=== PATIENT | female | born 1985 | race Caucasian/White ===

== ENCOUNTER 2023-08-26 13:56 | Inpatient (IN) | payer MEDICARE, SELFPAY ==
[2023-08-26] VITALS (7 sets, daily range): BP systolic 147–192; BP diastolic 79–109; PULSE 69–92; RESP 17–20; TEMP 36.6–37.3; O2SAT 94–100; BMI 30.7
--- NOTE | ~2023-08-26 | CT_ITS ---
EXAMINATION: CT ABDOMEN WITH CONTRAST CLINICAL INFORMATION: Liver mass. COMPARISON: CT abdomen and pelvis without IV contrast. TECHNIQUE: Contiguous axial thin section helical images of the abdomen were performed following the administration of oral contrast and 85 mL of Omnipaque 350 intravenous contrast. No delayed images were obtained. The data set was reformatted in the coronal and sagittal planes and reviewed on an independent workstation. This CT examination was performed using dose optimization techniques as appropriate, variously including the following: *Automated exposure control *Adjustment of mA and/or kV according to patient size (this includes techniques or standardized protocols for targeted exams where dose is matched to indication/reason for exam; i.e. extremities or head) *Use of iterative reconstruction technique DLP: 230 mGy-cm FINDINGS: LUNG BASES: There is plate-like atelectasis in both lung bases. Heart size is normal. LIVER, GALLBLADDER, AND BILIARY TREE: Again visualized are multiple nonenhancing liver masses, the largest in the left hepatic lobe measuring 6.2 x 4.3 x 5.5 cm. The largest lesion in the left hepatic lobe has some peripheral enhancement along its superior and posterior borders and may represent a hemangioma. No delayed images were obtained. A second smaller lesion in the right hepatic lobe measures 2.2 x 1.4 cm axial image 19/3. A smaller left hepatic lobe lesion measures 2.21 cm on axial image 14/3. There is a caudate lobe lesion with some peripheral enhancement measuring 3.3 x 4.1 cm on axial image 26/3. No intrahepatic ductal dilatation. The gallbladder is unremarkable. PANCREAS: The pancreas is homogeneous in density without focal lesion. Peripancreatic fat borders are maintained normal. SPLEEN: Unremarkable. ADRENAL GLANDS AND KIDNEYS: Adrenal glands are unremarkable. Both kidney nephrograms are symmetrical in size, shape and position. There is no hydronephrosis. There is a right internal ureteral stent with its proximal end in the kidney pelvis and the distal end likely in the bladder not in the [id number]. There are multiple radiopaque bilateral small renal calculi. UPPER GI TRACT: The stomach is distended with recently ingested food. The small bowel loops and the colon appear unremarkable. There are scattered diverticula in the colon. Appendix is normal caliber. Small shotty lymph nodes are seen in the ileocecal mesentery. LYMPH NODES: Normal. VASCULAR: Unremarkable. BONES: No aggressive lytic or sclerotic process seen. CT/CT abdomen w IV con IMPRESSION: 1. Multiple nonenhancing liver lesions. The largest lesion in the left hepatic lobe has some peripheral enhancement and may represent hemangioma. No delayed images were obtained. Recommend repeat CT or MRI abdomen with contrast and delayed imaging. 2. There is a right internal ureteral stent with its proximal end in the kidney pelvis and the distal end likely in the bladder not in the [id number]. 3. Bilateral nephrolithiasis without hydronephrosis. Fleischner guidelines were followed.
--- NOTE | ~2023-08-26 | CT_ITS ---
EXAMINATION: CT ABDOMEN AND PELVIS WITHOUT CONTRAST CLINICAL INFORMATION: Right flank pain COMPARISON: None available. TECHNIQUE: Multidetector volumetric imaging was performed from the superior aspect of the liver through the pubic symphysis. Sagittal and coronal reformatted images were obtained on the technologist's workstation. This CT examination was performed using dose optimization techniques as appropriate, variously including the following: *Automated exposure control *Adjustment of mA and/or kV according to patient size (this includes techniques or standardized protocols for targeted exams where dose is matched to indication/reason for exam; i.e. extremities or head) *Use of iterative reconstruction technique DLP: 586 mGy-cm FINDINGS: LUNG BASES: The visualized lung bases are unremarkable. LIVER, GALLBLADDER, AND BILIARY TREE: There are multiple masses in the liver with an exophytic, irregular mass in the left lobe of the liver, measured 5.9 x 4.7 x 6.7 cm. Smaller sized masses seen through the entire liver. The gallbladder is unremarkable with no evidence of radiopaque gallstones, gallbladder wall thickening, or obvious pericholecystic inflammatory changes. PANCREAS: Unremarkable. SPLEEN: Unremarkable. ADRENAL GLANDS: Unremarkable. KIDNEYS AND URETERS: There is bilateral nephrolithiasis with multiple small calculi seen in the collecting system of both kidneys. There is a partially obstructing 0.4 cm stone in proximal right ureter. BLADDER: Unremarkable. GASTROINTESTINAL TRACT: There are changes of colonic diverticulosis without diverticulitis The small unremarkable. The appendix is unremarkable. ABDOMINAL WALL: No significant hernia is appreciated. LYMPH NODES: Normal. VASCULAR: Unremarkable. PELVIC VISCERA: There is IUD in the lower uterine segment and is not protective of incidental fertility. IUD is in provided in the lower uterus. OSSEOUS STRUCTURES: Unremarkable. CT/CT abdomen pelvis wo IV con IMPRESSION: 1. Bilateral nephrolithiasis with a partially obstructing stone in proximal right ureter in the right hydroureteronephrosis. 2. Multiple masses in the liver. Correlate with IV enhanced CT scan or MRI 3. IUD in the lower uterine segment, not protective. 4. Diverticulosis without diverticulitis. Fleischner guidelines were followed.
--- NOTE | 2023-08-26 14:18 | ED.ABDPAIN ---
HPI - Abdominal Pain General Chief Complaint: Abdominal Pain Stated Complaint: ABD PAIN/N/V Time Seen by Provider: 08/26/23 16:08 Source: patient and EMS Mode of arrival: EMS Limitations: no limitations History of Present Illness HPI narrative: This is a 38-year-old female who denies past medical history presenting to the emergency department for complaints of sudden onset right-sided flank pain, abdominal pain, nausea, vomiting all of which started this morning she also reports subjective fevers and chills. She reports her pain is 10/10 she is extremely uncomfortable. She reports this has never happened to her before. No chances of . Denies drugs, alcohol tobacco. Patient reports she still has her appendix. Has never had a kidney stone. Denies chest pain, shortness of breath, headache, vision changes, dizziness, urinary sx and weakness. Related Data Home Medications Medication Instructions Recorded Confirmed No Known Home Meds 08/26/23 08/26/23 Allergies Allergy/AdvReac Type Severity Reaction Status Date / Time No Known Allergies Allergy Verified 08/26/23 14:20 Review of Systems Review of Systems Constitutional : No Weight loss, + Fever, + Chills, + Fatigue, + Malaise ENT/Mouth : No sore throat, No Rhinorrhea Eyes: No Eye Pain, No Swelling, No Redness Cardiovascular : No Chest Pain, No SOB, No Dyspnea on Exertion, No Orthopnea, No Edema, No Palpitations Respiratory : No Cough, No Sputum, No Wheezing Gastrointestinal : No Nausea, No Vomiting, No Diarrhea, No Constipation, + abdominal Pain, No Hematochezia, No Melena Genitourinary : No Dysuria, No Urinary Frequency, No Hematuria, Musculoskeletal : No joint pain, No Myalgias, No Joint Swelling, + flank pain Skin : No Skin Lesions, No rash Neuro : No Weakness, No Numbness, No Dizziness, No Headache Psych : No Anxiety/Panic, No Depression All other systems reviewed and are negative Yes all other systems are reviewed and are negative [facility] Past Medical History Attestation statement: The following information was validated with the patient. Source: old records reviewed and nursing notes reviewed Social History Patient Tobacco Use Status: Never used Tobacco Smoked in Last 30 Days: No Use of substances other than those prescribed or required for medical reasons: No Advance Directives: No Advance Directives Information Provided: Yes Nutrition Risks: No Nutritional Risk Patient : No Physical Exam ED Vital Signs: Vital Signs - 24 hr 08/26/23 14:21 08/26/23 15:07 Temperature 98 F 98.0 F Pulse Rate 82 80 Respiratory Rate 19 20 Blood Pressure 167/109 H 172/92 H Pulse Oximetry 98 94 Oxygen Delivery Method Room Air Room Air BMI result Body Mass Index 30.0 vss Appearance: Alert.? Oriented X3.? + acute distress, appears uncomfortable ? Head: Normocephalic, atraumatic, no step-offs or deformities Eyes: Pupils equal, round and reactive to light.? Neck: Normal inspection.? Neck supple.? CVS: Normal heart rate and rhythm.? Pulses normal.? Respiratory: No respiratory distress.? Breath sounds normal.? Abdomen: Soft and + right sided tenderness .? Skin: Skin warm and dry.? Normal skin color.? Normal skin turgor.? Extremities: No lower extremity edema.? No calf ttp. 5/5 strength to bilateral upper and lower extremities Back: + right sided cva tenderness Neuro: Oriented X 3.? No motor deficit.? No sensory deficit. CN 2-12 intact Course Course Course Narrative: This is an RME: Additional HPI, ROS, PE not included below will be deferred to primary provider. This is a [id number]-female presenting to the emergency department with complaints of right sided abdominal pain x 5 hours. patient endorsing right flank pain with nausea. Actively vomiting in triage. Plan: Labs, UA, upreg Reevaluation(s) Reevaluation #1: CBC with leukocytosis and left shift. Chemistry with an elevated BUN likely secondary to poor p.o. intake dehydration. Initial labs did not include a lipase will add a lipase, blood cultures, lactic acid. Urine pending. CT abdomen pelvis pending. Time: 16:45 Reevaluation #2: Lipase unremarkable. Normal lactic acid. UA with UTI therefore ceftriaxone was given. CT abdomen and pelvis with bilateral nephrolithiasis with partially obstructing stone in the proximal right ureter in the right hydroureter nephrosis, multiple masses in the liver, IUD in the lower uterine segment not protective. Diverticulosis. This case was thoroughly discussed with Urology who will admit patient, Dr. Renteria. At this time plan is for hospital admission. Time: 19:37 Medical Decision Making Medical Decision Making [facility] Narrative: [age]-year-old female presents with sudden onset right-sided flank pain since this morning with associated nausea, vomiting, subjective fevers, chills. Physical examination patient appears uncomfortable, right-sided CVA tenderness, right-sided abdominal pain. Concerns for urinary tract infection versus pyelonephritis versus obstructing uropathy. Will rule out appendicitis, unlikely cholecystitis, acute abdomen, obstruction, pancreatitis, diverticulitis. Plan at this time labs, imaging, urine, pain control. Differential Diagnosis Differential Diagnoses: The differential diagnosis associated with the presentation includes Concerns for urinary tract infection versus pyelonephritis versus obstructing uropathy. Will rule out appendicitis, unlikely cholecystitis, acute abdomen, obstruction, pancreatitis, diverticulitis. Admission/Observation Consideration of admission/observation: Escalation of care including admission/observation considered Likely Consult Healthcare Provider Management of the patient was discussed with: Hospitalist and Patient Scheduling Manager ( ) Lab Data [facility] Lab Attestation statement: I reviewed the patient's lab results. 08/26/23 15:31 08/26/23 15:31 Labs: Lab Results 08/26/23 08/26/23 Range/Units 15:31 17:10 WBC 15.9 H (4.8-10.8) X10*3/uL RBC 4.79 (4.20-5.50) X10*6/uL Hgb 12.8 (12.0-16.0) g/dl Hct 41.0 (37.0-47.0) % MCV 85.6 (80.0-98.0) fL MCH 26.7 L (27.0-33.0) pg MCHC 31.2 (31.0-35.0) g/dl RDW 15.8 (11.0-16.0) % Plt Count 352 (160-400) X10*3/uL MPV 11.5 (9.4-12.3) fL Immature Gran % (Auto) 0.6 H (0.0-0.4) % Neut % (Auto) 87.6 H (45-73) % Lymph % (Auto) 8.2 L (20-40) % Barren % (Auto) 2.7 (2-11) % Eos % (Auto) 0.4 (0-4) % Baso % (Auto) 0.5 (0-2) % Lymph # (Auto) 1.3 (1.2-4.9) X10*3/uL Barren # (Auto) 0.4 (0.1-1.2) X10*3/uL Eos # (Auto) 0.1 (0.0-0.4) X10*3/uL Baso # (Auto) 0.1 (0.0-0.2) X10*3/uL Abs Immat Gran (auto) 0.09 H (0.00-0.03) X10*3/uL Absolute Neuts (auto) 14.0 H (2.0-8.3) x10*3/uL Absolute Nucleated RBC 0.000 (0.0-0.012) X10*3/uL Nucleated RBC % (auto) 0.0 (0.0-0.2) /100WBC Sodium 141 (135-145) mmol/L Potassium 4.3 (3.3-5.1) mmol/L Chloride 107 (96-108) mmol/L Carbon Dioxide 28 (22-29) mmol/L Anion Gap 10 L (12-20) BUN 17 H (9-16) mg/dL Creatinine 0.87 (0.5-1.4) mg/dL Estim Creat Clear Calc 92.5 Estimated GFR > 60 Random Glucose 135 H (60-115) mg/dL Lactic Acid 1.6 (0.5-2.0) mmol/L Calcium 9.6 (8.4-10.2) mg/dL Total Bilirubin 0.2 (0.0-1.0) mg/dL Direct Bilirubin < 0.2 (0.0-0.5) mg/dL AST 21 (5-31) U/L ALT 17 (0-31) U/L Alkaline Phosphatase 70 (39-117) U/L Total Protein 7.6 (6.5-8.0) g/dL Albumin 4.3 (3.5-5.0) g/dL Lipase 37 (8-78) U/L Urine Color Yellow Urine Appearance Cloudy Urine pH 7.0 (5.0-9.0) Ur Specific [place] 1.015 (1.005-1.025) Urine Protein 30 (1+) H (Neg-Trace) mg/dL Urine Glucose (UA) Negative (Negative) mg/dL Urine Ketones Negative (Negative) mg/dL Urine Blood Large (3+) H (Negative) Urine Nitrite Negative (Negative) Ur Leukocyte Esterase Moderate (2+) H (Negative) Urine RBC >20 H (0-2) /HPF Urine WBC >50 H (0-5) /HPF Ur Squamous Epith Cells 3-5 (0-2) /HPF Urine Bacteria 4+ (None Seen) Hyaline Casts 0-2 (0-2) /LPF Urine Test NEGATIVE (NEGATIVE) Independent Interpretation I performed an independent interpretation of an: CT Scan (CT/CT abdomen pelvis wo IV con IMPRESSION: 1. Bilateral nephrolithiasis with a partially obstructing stone in proximal right ureter in the right hydroureteronephrosis. 2. Multiple masses in the liver. Correlate with IV enhanced CT scan or MRI 3. IUD in the lower uterine segment, not protective. 4) Radiology Impression Discussion of test interpretation with radiology: I have reviewed the radiologist's reading. Prescription Management I considered prescription management with: Pain Medication Medications Administered Generic Name Dose Route Start Last Admin Trade Name Freq PRN Reason Stop Dose Admin Sodium Chloride 1,000 mls @ 100 mls/hr 08/26/23 18:00 08/26/23 18:27 Ns IVCONT 100 mls/hr .Q10H KAMALJIT Administration Discontinued Medications Generic Name Dose Route Start Last Admin Trade Name Freq PRN Reason Stop Dose Admin Diphenhydramine HCl 25 mg 08/26/23 16:14 08/26/23 16:36 Diphenhydramine Hcl 50 Mg/Ml Vial IVPUSH 08/26/23 16:15 25 mg ONCE ONE Administration Sodium Chloride 1,000 mls @ 999 mls/hr 08/26/23 15:45 08/26/23 16:47 Ns IV 08/26/23 16:45 Infused .Q1H1M KAMALJIT Infusion Sodium Chloride 2,449.41 mls @ 2,449.41 mls/hr 08/26/23 16:14 08/26/23 17:36 Ns 30 ml/kg infuse over 1 hr (2449.41 ml) 08/26/23 17:13 Infused IV Infusion .Q1H STA Ceftriaxone Sodium 1 gm/ 50 mls @ 100 mls/hr 08/26/23 17:46 08/26/23 18:27 Sodium Chloride IV 08/26/23 18:15 100 mls/hr ONCE ONE Administration Ketorolac Tromethamine 30 mg 08/26/23 16:14 08/26/23 16:35 Ketorolac Tromethamine 15 Mg/Ml Vial IVPUSH 08/26/23 16:15 30 mg ONCE ONE Administration Metoclopramide HCl 10 mg 08/26/23 16:14 08/26/23 16:38 Metoclopramide Hcl 10 Mg/2 Ml Vial IVPUSH 08/26/23 16:15 10 mg ONCE ONE Administration Morphine Sulfate 4 mg 08/26/23 16:46 08/26/23 17:06 Morphine Sulfate 4 Mg/Ml Cartridge IVPUSH 08/26/23 16:47 4 mg ONCE ONE Administration Protocol Ondansetron HCl 4 mg 08/26/23 14:23 08/26/23 14:27 Ondansetron Odt 4 Mg Tab.Rapdis TRANSLINGU 08/26/23 14:24 4 mg ONCE ONE Administration Ondansetron HCl 4 mg 08/26/23 15:42 08/26/23 15:46 Ondansetron Hcl 4 Mg/2 Ml Vial IVPUSH 08/26/23 15:43 4 mg ONCE ONE Administration Critical Care Time Critical Care Time Critical Care Time: Yes Total Critical Care Time: 60 Attestation: I attest to this time spent taking care of the patient, obtaining history, physical, reviewing labs, imaging, speaking to my attending, speaking to specialist. Discharge Plan Discharge Clinical Impression: Obstructive uropathy, Malpositioned IUD, Liver mass Patient Disposition: Admitted As Inpatient
[2023-08-26] MEDS: Ondansetron ODT 4 MG TAB.RAPDIS TRANSLINGU (14:27)
--- NOTE | 2023-08-26 15:03 | PC.NURSE ---
tech bedside obtaining labs at this time.
[2023-08-26 15:36] LABS: MANUAL DIFF FLAG NO
[2023-08-26 15:41] LABS: Basophils Absolute Auto 0.1 X10*3/uL (0.0-0.2); Basophils Percent Auto 0.5 % (0-2); Eosinophils Absolute Auto 0.1 X10*3/uL (0.0-0.4); Eosinophils Percent Auto 0.4 % (0-4); Hemoglobin 12.8 g/dl (12.0-16.0); Imm Gran Abs Auto 0.09 X10*3/uL (0.00-0.03); Imm Gran Pct Auto 0.6 % (0.0-0.4); Lymphocytes Absolute Auto 1.3 X10*3/uL (1.2-4.9); Lymphocytes Percent Auto 8.2 % (20-40); Mean Corpuscular HGB Conc 31.2 g/dl (31.0-35.0); Mean Corpuscular Hemoglobin 26.7 pg (27.0-33.0); Mean Corpuscular Volume 85.6 fL (80.0-98.0); Mean Platelet Volume 11.5 fL (9.4-12.3); Monocytes Absolute Auto 0.4 X10*3/uL (0.1-1.2); Monocytes Percent Auto 2.7 % (2-11); Neutrophils Percent Auto 87.6 % (45-73); Platelet Count 352 X10*3/uL (160-400); Red Blood Count 4.79 X10*6/uL (4.20-5.50); Red Cell Distribution Width 15.8 % (11.0-16.0); White Blood Count 15.9 X10*3/uL (4.8-10.8)
[2023-08-26] MEDS: ondansetron HCL 4 MG/2 ML VIAL IVPUSH (15:46)
[2023-08-26] MEDS: 0.9 % Sodium Chloride 1,000 ML 999 ML IV (15:46)
--- NOTE | 2023-08-26 15:49 | PC.NURSE ---
a&ox3, vss and up to date at this time. pt c/o right sided flank pain. denies radiation. pt verbalizes pain started this am. pt currently tearful/agitated d/t pain. states that it is excruciating. pt nauseous/dry heaving. 20gIV placed in left AC w/o difficulty - labs drawn and sent to lab. zofran and NS administered. call smith placed within reach.
[2023-08-26 15:57] LABS: Alanine Aminotransferase 17 U/L (0-31); Albumin Level 4.3 g/dL (3.5-5.0); Alkaline Phosphatase 70 U/L (39-117); Anion Gap 10 (12-20); Aspartate Amino Transferase 21 U/L (5-31); Bilirubin Direct < 0.2 mg/dL (0.0-0.5); Bilirubin Total 0.2 mg/dL (0.0-1.0); Blood Urea Nitrogen 17 mg/dL (9-16); Calcium 9.6 mg/dL (8.4-10.2); Carbon Dioxide 28 mmol/L (22-29); Chloride 107 mmol/L (96-108); Creatinine Clr Calc Pharmacy 92.5; Estimated Glomerular Filt Rate > 60; Glucose Random 135 mg/dL (60-115); Potassium 4.3 mmol/L (3.3-5.1); Sodium 141 mmol/L (135-145); Total Protein 7.6 g/dL (6.5-8.0)
[2023-08-26] MEDS: Ketorolac Tromethamine 15 MG/ML VIAL 30 MG IVPUSH (16:35)
[2023-08-26] MEDS: diphenhydrAMINE HCL 50 MG/ML VIAL 25 MG IVPUSH (16:36)
[2023-08-26] MEDS: 0.9 % Sodium Chloride 2,449.41 ML 2449.41 ML IV (16:36)
[2023-08-26] MEDS: Metoclopramide HCl 10 MG/2 ML VIAL IVPUSH (16:38)
[2023-08-26] MEDS: Morphine Sulfate 4 MG/ML CARTRIDGE IVPUSH (17:06)
--- NOTE | 2023-08-26 17:08 | PC.NURSE ---
medication administered per provider order. tech obtaining labs at this time. pt verbalizing pain level did not decrease despite medication administration. pt still teary/agitated at this time. pt still displays w/ no sob/wob at this time. respirations remain even and unlabored. call smith placed within reach.
[2023-08-26 17:09] LABS: Lipase 37 U/L (8-78)
[2023-08-26 17:21] LABS: Appearance Urine Cloudy; Color Urine Yellow; Glucose Urine UA Negative (Negative); Leukocyte Esterase Urine Moderate (2+) (Negative); Nitrite Urine Negative (Negative); Specific Gravity - Urine 1.015 (1.005-1.025); UMIC TRIGGER UACC YES; Urine Blood Large (3+) (Negative); Urine Ketones Negative (Negative); Urine Protein 30 (1+) mg/dL (Neg-Trace)
[2023-08-26 17:23] LABS: UPreg QC Valid YES; Urine Pregnancy NEGATIVE (NEGATIVE)
[2023-08-26 17:28] LABS: Lactic Acid 1.6 mmol/L (0.5-2.0)
[2023-08-26 17:34] LABS: Bacteria Urine 4+ (None Seen); Hyaline Casts Urine 0-2 /LPF (0-2); RBC Urine >20 /HPF (0-2); UACC Culture Trigger YES; WBC Urine >50 /HPF (0-5)
--- NOTE | 2023-08-26 17:50 | P.HPGS_ITS ---
History of Present Illness History of Present Illness Date of Service: 08/26/23 Chief complaint: ABD PAIN/N/V Narrative: Brisa Cooley is a 38 year old female Sudden onset right flank pain 07/15 associated nausea, vomiting Denies urge, frequency, gross hematuria Subjective chills No prior stone history Imaging - CT 5mm UPJ right with mild hydronephrosis Plan - admit for pain and fluid managment Plan intervention tomorrow Review of Systems Constitutional: Constitutional: Reports as per HPI and Reports no additional constitutional complaints Cardiovascular: Cardiovascular: Reports as per HPI and Reports no additional cardiovascular complaints Respiratory: Respiratory: Reports as per HPI and Reports no additional respiratory complaints Gastrointestinal: Gastrointestinal: Reports as per HPI and Reports no josh tional gastrointestinal complaints Genitourinary: Genitourinary: Reports as per HPI Musculoskeletal: Musculoskeletal: Reports no additional musculoskeletal complaints and Reports as per HPI Neurologic: Reports system reviewed and no additional complaints, except as documented and Reports as per HPI [facility] Social History Smoked in Last 30 Days: No Use of substances other than those prescribed or required for medical reasons: No Advance Directives: No Advance Directives Information Provided: Yes Patient : No Meds Allergies Allergy/AdvReac Type Severity Reaction Status Date / Time No Known Allergies Allergy Verified 08/26/23 14:20 Active Medications: Current Medications Ceftriaxone Sodium 1 gm/ (Sodium Chloride) 50 mls @ 100 mls/hr IV ONCE ONE Stop: 08/26/23 18:15 Physical Exam Vital Signs: Vital Signs: Last Vital Signs Temp 98.0 F 08/26/23 15:07 Pulse 80 08/26/23 15:07 Resp 20 08/26/23 15:07 BP 172/92 H 08/26/23 15:07 Pulse Ox 94 08/26/23 15:07 O2 Del Method Room Air 08/26/23 15:07 BMI result Body Mass Index 30.0 Const: General: cooperative, healthy appearing, comfortable and no acute distress Orientation/consciousness: patient oriented x3 HEENT: Face and sinus: Yes normal facial exam Mouth: moist mucous membranes Neck: Neck: Yes normal visual inspection, Yes full ROM and Yes trachea midline Chest: Chest palpation & inspection: normal inspection of the chest Resp: Effort & Inspection: normal respiratory effort, able to speak in complete sentences and no respiratory distress GI: Inspection: Yes normal to inspection Back/Spine/Pelvis: Cervical Spine: normal cervical lordosis Thoracic/Lumbar Spine: thoracic and lumbar spine normal to inspection Skin: General skin exam: no rashes or lesions noted Neuro: General: patient oriented x3, tone normal and moves all extremities Extrem: General: Yes normal to inspection and Yes capillary refill normal Results Results Labs: Short CBC 08/26/23 Range/Units 15:31 WBC 15.9 H (4.8-10.8) X10*3/uL Hgb 12.8 (12.0-16.0) g/dl Hct 41.0 (37.0-47.0) % Plt Count 352 (160-400) X10*3/uL BMP 08/26/23 15:31 Sodium 141 Potassium 4.3 Chloride 107 Carbon Dioxide 28 BUN 17 H Creatinine 0.87 Calcium 9.6 Liver Function 08/26/23 Range/Units 15:31 Total Bilirubin 0.2 (0.0-1.0) mg/dL Direct Bilirubin < 0.2 (0.0-0.5) mg/dL AST 21 (5-31) U/L ALT 17 (0-31) U/L Alkaline Phosphatase 70 (39-117) U/L Albumin 4.3 (3.5-5.0) g/dL Urine 08/26/23 Range/Units 17:10 Urine Color Yellow Urine Appearance Cloudy Urine pH 7.0 (5.0-9.0) Ur Specific [place] 1.015 (1.005-1.025) Urine Protein 30 (1+) H (Neg-Trace) mg/dL Urine Glucose (UA) Negative (Negative) mg/dL Urine Test NEGATIVE (NEGATIVE) Assessment and Plan (1) Nephrolithiasis: Status: Acute (2) Flank pain: Status: Acute (3) Nausea & vomiting: Qualifiers: Vomiting type: unspecified Qualified Code(s): R11.2 - Nausea with vomiting, unspecified Status: Acute Plan Ureteroscopy We discussed the nature of the decision and reasonable alternatives for performing ureteroscopy. Options such as medical therapy were discussed. Interventions include chemical dissolution, ESWL, ureteroscopy with laser lithotripsy and stent placement, PCNL. The relative uncertainties and benefits related to each alternate procedure were adequately discussed. General surgical risks including, but not limited to - pain, bleeding, infection, myocardial infarction, pulmonary embolus, deep vein thrombosis and cerebrovascular accident which may result in further hospitalization were discussed. Full disclosure of the procedure as well as all major risks, benefits and complications were discussed including but not limited to damage to the urethra, bladder and kidney infection, damage to the ureter, stent migration or malposition, scarring to the renal pelvis, remnant stone fragments, subsequent stone passage with need for secondary procedures. The overall secondary procedure rate is approximately 10-15%. The overall clearance rate is approximately 90-95%. Success of the procedure in the short-term does not necessarily guarantee that long-term success will be maintained. Suitable follow up will need to be maintained. The patient showed understanding of discussion and wishes to proceed with - cystoscopy, retrograde, ureteroscopy, possible lithotripsy/stone basketing and stent on the right side Quality Stroke Does the patient have a stroke diagnosis?: No VTE Prior VTE?: No VTE Risk Level:: Surgical - low VTE Device Contraindication: Treatment Not Indicated VTE Drug Contraindication: Treatment Not Indicated Procedures Date of Service Date of Service: 08/26/23
[2023-08-26] MEDS: cefTRIAXone sodium 1 GM in 0.9 % Sodium Chloride 50 ML IV (18:27)
[2023-08-26] MEDS: 0.9 % Sodium Chloride 1,000 ML 100 ML IVCONT (18:27)
--- NOTE | 2023-08-26 18:54 | PHA.MEDREC ---
Pharmacy Consult ? Medication Reconciliation Pharmacy has completed the medication reconciliation. Patient reported no medications at home. Marilee Allen, BlancaD
--- NOTE | 2023-08-26 19:45 | PC.NURSE ---
RN to RN given to Tereza Araiza, Pt will be transported to bed 445. Pt aware of plan.
[2023-08-26] MEDS: Acetaminophen 325 MG TABLET 975 MG PO (20:42)
[2023-08-26] MEDS: Morphine Sulfate 4 MG/ML CARTRIDGE 3 MG IVPUSH (20:43)
[2023-08-27] VITALS (11 sets, daily range): BP systolic 130–150; BP diastolic 50–98; PULSE 76–102; RESP 16–20; TEMP 36.2–36.6; O2SAT 97–98
[2023-08-27] MEDS: Morphine Sulfate 4 MG/ML CARTRIDGE 3 MG IVPUSH ×3 (03:41→15:35)
[2023-08-27] MEDS: 0.9 % Sodium Chloride 1,000 ML 100 ML IVCONT ×2 (03:43→16:28)
--- NOTE | 2023-08-27 09:39 | MHC.CM.PN ---
CM met with Patient at bedside and addressed IMM with her, providing Patient with the original and placing a copy on the chart. Patient livers in a house with her Uncle and she is functionally independent. Home self care vs new VNA pending Surgery is the tentative plan and CM has initiated and will follow for dc planning. PCP is from [facility].
--- NOTE | 2023-08-27 12:51 | MHC.SHP ---
Pre-Procedural Eval Section A Date of Service: 08/27/23 The patient is an INPATIENT: Yes Changes since office visit: No Cold of Flu in the past 2 weeks, No New Medical Problems, No Changes in Medication and No Patient answered all questions The History & Physical has been completed within 30 days and I have reviewed it.: Yes Section B Chief Complaint: nephrolithiasis Details of Present Illness: Right upper ureteric UPJ stone Relevant Social History: None Present Medications: None Medical History: No relevant PMH History of Previous Operations: No relevant previous surgery Allergies: Allergies Allergy/AdvReac Type Severity Reaction Status Date / Time No Known Allergies Allergy Verified 08/26/23 14:20 Review of Systems Sugical H&P ROS: Negative: Constitution, Cardiovascular, Respiratory, Neurological, Psychiatric, Hem-Onc, Allergic/Immunologic, Gastrointestinal, Genitourinary, Musculoskeletal, Integumentary, Endocrine and Eyes/Ears/Nose/Throat Exam Surgical H&P Exam: Normal: HEENT, Normal: Heart, Normal: Lungs, Normal: Extremities, Normal: Abdomen, Normal: Skin and Normal: Neurological Plan Diagnosis/Plan: Unchanged (Cystoscopy, right retrograde, stent placement) I have reviewed the history and physical and performed a pertinent physical examination on my patient. No changes have occurred unless specified. Time Spent With Patient Time: Total time managing care of this patient today ____ minutes.
--- NOTE | 2023-08-27 12:58 | P.CONAN_ITS ---
[facility] Active Problems Active Problems: All Active Problems (Updated 08/27/23 @ 12:44 by Sandy Garcia RN) Liver mass (Acute) Malpositioned IUD (Acute) Obstructive uropathy (Acute) Nausea & vomiting (Acute) Flank pain (Acute) Nephrolithiasis (Acute) Past Medical History Medical History (Updated 08/27/23 @ 12:44 by Sandy Garcia RN) Delivery with history of section Family History Family history of problems with anesthesia: No Surgical History History of Problems with Anesthesia: No Social History Household Members: None Housing: Apartment Do you presently have visiting nurse or other home services: No Patient Tobacco Use Status: Never used Tobacco service: No Meds Allergies Allergy/AdvReac Type Severity Reaction Status Date / Time No Known Allergies Allergy Verified 08/26/23 14:20 Active Medications: Current Medications Acetaminophen (Acetaminophen 325 Mg Tablet) 975 mg PO TID [facility] Last Admin: 08/27/23 09:02 Dose: Not Given Fentanyl (Fentanyl Citrate/Pf 100 Mcg/2 Ml Vial) 50 mcg IVPUSH Q5M PRN; Protocol PRN Reason: Pain, Severe (Pain Scale 7-10) Sodium Chloride (Ns) 1,000 mls @ 100 mls/hr IVCONT .Q10H [facility] Last Admin: 08/27/23 03:43 Dose: 100 mls/hr Levofloxacin (Levaquin) 500 mg in 100 mls @ 100 mls/hr IV PREOP ONE Stop: 08/27/23 13:06 Promethazine HCl 12.5 mg/ (Sodium Chloride) 50.5 mls @ 202 mls/hr IV ONCE PRN PRN Reason: Nausea and Vomiting Ketorolac Tromethamine (Ketorolac Tromethamine 15 Mg/Ml Vial) 15 mg IVPUSH Q6H PRN PRN Reason: Pain, Moderate(Pain Scale 4-6) Morphine Sulfate (Morphine Sulfate 4 Mg/Ml Cartridge) 3 mg IVPUSH Q3H PRN; Protocol PRN Reason: Pain, Moderate(Pain Scale 4-6) Last Admin: 08/27/23 08:08 Dose: 3 mg Ondansetron HCl (Ondansetron Hcl 4 Mg/2 Ml Vial) 4 mg IVPUSH Q8H PRN PRN Reason: Nausea and Vomiting Oxycodone HCl (Oxycodone Hcl Immed Release 5 Mg Tablet) 5 mg PO ONCE PRN PRN Reason: Pain, Severe (Pain Scale 7-10) Sodium Chloride (0.9 % Sodium Chloride Flush 3 Ml Syringe) 3 [facility] Last Admin: 08/27/23 07:45 Dose: Not Given Home Medications Medication Instructions Recorded Confirmed Last Taken Type No Known Home Meds 08/26/23 08/26/23 Unknown History Exam Height,Weight and Vital Signs: Height 5 ft 5 in Weight 83.7 kg Last Vital Signs Temp 98 F 08/27/23 12:38 Pulse 93 08/27/23 12:38 Resp 20 08/27/23 12:38 BP 149/98 H 08/27/23 12:38 Pulse Ox 98 08/27/23 12:38 O2 Del Method Room Air 08/27/23 12:38 Pertinent Lab Results Pertinent Lab Results: Laboratory Tests 08/26/23 08/26/23 15:31 17:10 WBC 15.9 H RBC 4.79 Hgb 12.8 Hct 41.0 MCV 85.6 MCH 26.7 L MCHC 31.2 RDW 15.8 Plt Count 352 MPV 11.5 Immature Gran % (Auto) 0.6 H Neut % (Auto) 87.6 H Lymph % (Auto) 8.2 L Larue % (Auto) 2.7 Eos % (Auto) 0.4 Baso % (Auto) 0.5 Lymph # (Auto) 1.3 Larue # (Auto) 0.4 Eos # (Auto) 0.1 Baso # (Auto) 0.1 Abs Immat Gran (auto) 0.09 H Absolute Neuts (auto) 14.0 H Absolute Nucleated RBC 0.000 Nucleated RBC % (auto) 0.0 Sodium 141 Potassium 4.3 Chloride 107 Carbon Dioxide 28 Anion Gap 10 L BUN 17 H Creatinine 0.87 Estim Creat Clear Calc 92.5 Estimated GFR > 60 Random Glucose 135 H Lactic Acid 1.6 Calcium 9.6 Total Bilirubin 0.2 Direct Bilirubin < 0.2 AST 21 ALT 17 Alkaline Phosphatase 70 Total Protein 7.6 Albumin 4.3 Lipase 37 Urine Color Yellow Urine Appearance Cloudy Urine pH 7.0 Ur Specific [place] 1.015 Urine Protein 30 (1+) H Urine Glucose (UA) Negative Urine Ketones Negative Urine Blood Large (3+) H Urine Nitrite Negative Ur Leukocyte Esterase Moderate (2+) H Urine RBC >20 H Urine WBC >50 H Ur Squamous Epith Cells 3-5 Urine Bacteria 4+ Hyaline Casts 0-2 Urine Test NEGATIVE Airway Mallampati Class: II TM Dist: >3cm Neck ROM: Full Heart: rrr Lungs: cta Assessment and Plan Assessment Anesthesia Assessment: Anesthesia Plan Discussed and Chart Reviewed Final Anesthetic Review Family History of Problems with Anesthesia: No History of Problems with Anesthesia: No NPO: Yes ASA Class: II Final Preanesthetic Review: No Changes in Pt Med Stat, Meds/Allgs Chart Reviewed and Consent Obtained/Reviewed Patient Risk: Intermediate Procedure Risk: Intermediate Anesthetic Plan Anesthetic Plan: GA Disposition: Standard PACU
--- NOTE | 2023-08-27 13:39 | P.OP_ITS ---
Operative Note Operative Note Date of Service: 08/27/23 Narrative: PreOperative Diagnosis: Right upper ureteric stone Post Operative Diagnosis: Right upper ureteric stone Procedure: Cystoscopy, right retrograde, right stent placement Surgeon: Dr Anuj Renteria Anesthesia: Sedation Indications for procedure: Right upper ureteric stone with hydronephrosis Procedure: After informed consent was verified the patient was brought to the operating room and placed in a supine position. Anesthesia was administered per protocol. The patient was placed in modified dorsal lithotomy position and prepped and draped in a sterile fashion. A safety pause time-out was performed. Laterality of procedure and antibiotics were confirmed, appropriate imaging was available A 22 Slovenian cystoscope was introduced per urethra. No abnormality was noted of urethra or bladder. Both ureteric orifices were seen in a normal position. The right ureter was cannulated with an open ended catheter and a retrograde examination was performed. Filling defects seen and right upper ureter . A Sensor guidewire was placed under fluoroscopy and a good coil was seen within the renal pelvis. A 6 Slovenian by 24 cm double J stent was advanced over the wire and up to the level of the renal pelvis under fluoroscopic and direct visualization. The stent was seen with appropriate coil within the renal pelvis and in the bladder after deployment. The patient tolerated the procedure well and was transferred in a stable condition to the recovery area. Pathology: Drains: Drainage above
--- NOTE | 2023-08-27 13:53 | MHC.CM.PN ---
Per RN, Patient apparently had a court date today. CM Feller Machine Operator faxed over a letter to the court, explaining that Patient is hospitalized. JODI attempted to return a call from Karli/Kwasi at [phone] but Kwasi was unavailable to take the call at that time.
[2023-08-27] MEDS: Acetaminophen 325 MG TABLET 650 MG PO (13:56)
[2023-08-27] MEDS: Phenazopyridine HCL 100 MG TABLET PO (13:56)
--- NOTE | 2023-08-27 14:01 | MHC.CM.PN ---
JODI received a return call from Kwasi at [facility]; she has indicated that Patient's new court date is 10/02/2023 @ 9 AM at [facility]. It appears that from Surgery, Patient went to the third floor, room 377 so JODI has relayed this information to the 3rd floor CM, who is agreeable to give Patient the new court date information.
[2023-08-27] MEDS: iohexoL 350 MG/ML 75 ML INFUS..BTL 85 ML IV (16:03)
[2023-08-27] MEDS: oxyCODONE HCl Immed Release 5 MG TABLET PO (18:01)
--- NOTE | 2023-08-27 19:34 | PM.DS ---
DS: Providers Provider Date of Service: 08/27/23 Date of admission: 08/26/23 17:50 Primary care physician: Unknown Physician DS: Diagnosis Discharge Diagnosis (1) Nephrolithiasis: Status: Acute (2) Flank pain: Status: Acute (3) Nausea & vomiting: Status: Acute DS: Summary Hospital Course Hospital Course: procedure today with stent placement GNR ub urine with negative blood culture Time spent discussing smoking cessation with patient: 3 to 10 minutes Time Attestation Discharge coordination time: Less than 30 minutes Quality: Safe Use of Opioids Does Pt have an Active Cancer Diagnosis on the Problem List?: No Quality: Stroke Does the patient have a stroke diagnosis?: No Physical Exam Vital Signs: Vital Signs: Last Vital Signs Temp 97.6 F 08/27/23 15:42 Pulse 98 08/27/23 15:42 Resp 20 08/27/23 15:42 BP 145/88 H 08/27/23 15:42 Pulse Ox 98 08/27/23 15:42 O2 Del Method Room Air 08/27/23 15:42 BMI result Body Mass Index 30.7 Const: General: cooperative, healthy appearing, comfortable and no acute distress Orientation/consciousness: patient oriented x3 HEENT: Face and sinus: Yes normal facial exam Mouth: moist mucous membranes Neck: Neck: Yes normal visual inspection, Yes full ROM and Yes trachea midline Chest: Chest palpation & inspection: normal inspection of the chest Resp: Effort & Inspection: normal respiratory effort, able to speak in complete sentences and no respiratory distress GI: Inspection: Yes normal to inspection Back/Spine/Pelvis: Cervical Spine: normal cervical lordosis Thoracic/Lumbar Spine: thoracic and lumbar spine normal to inspection Skin: General skin exam: no rashes or lesions noted Neuro: General: patient oriented x3, tone normal and moves all extremities Extrem: General: Yes normal to inspection and Yes capillary refill normal DS: Data Data Completed and Pending Labs on day of discharge: Preliminary micro results at discharge 08/26/23 17:10 Blood Culture - Preliminary Blood - Venous No growth after 24 hours. 08/26/23 17:12 Blood Culture - Preliminary Blood - Venous No growth after 24 hours. 08/26/23 Unknown Urine Culture - Preliminary Urine clean catch Gram negative eli Imaging CT scan - abdomen: Attestation: I personally reviewed and interpreted this imaging study as follows: My impression: Stone at UPJ Possible mass in liver Radiologist's impression: ITS Impressions Abdomen/Pelvis CT 08/26/23 17:50 IMPRESSION: 1. Bilateral nephrolithiasis with a partially obstructing stone in proximal right ureter in the right hydroureteronephrosis. 2. Multiple masses in the liver. Correlate with IV enhanced CT scan or MRI 3. IUD in the lower uterine segment, not protective. 4. Diverticulosis without diverticulitis. Fleischner guidelines were followed. Discharge Plan Discharge Anticipated Discharge Date/Time: 08/27/23 19:28 Patient Disposition: Home, Self-Care Discharge Diagnosis: nephrolithiasis Referrals: Physician,Unknown J [Primary Care Provider] - 1 Week Discharge Medications: New phenazopyridine [Pyridium] 100 mg tablet 100 mg PO TID PRN (Reason: Spasm) 4 Days Qty: 12 0RF tamsulosin 0.4 mg capsule 0.4 mg PO BEDTIME 14 Days Qty: 14 0RF naproxen 500 mg tablet 500 mg PO BID PRN (Reason: pain) 7 Days Qty: 14 0RF levofloxacin 500 mg tablet 500 mg PO DAILY Qty: 7 0RF Discharge Orders: Discharge Order (Routine); Ordered 08/27/23 Ordered By: Anuj Renteria Diet: Advance to usual diet Activity on Discharge: As tolerated Stand Alone Forms: Patient Portal Discharge page Care Plan Goals: stones Health Concerns: stones Plan of Treatment: stones Assessment: stones
--- NOTE | 2023-08-27 19:36 | MHC.SHP ---
Pre-Procedural Eval Section A Date of Service: 08/27/23 Section B Chief Complaint: nephrolithiasis Allergies: Allergies Allergy/AdvReac Type Severity Reaction Status Date / Time No Known Allergies Allergy Verified 08/26/23 14:20 Plan I have reviewed the history and physical and performed a pertinent physical examination on my patient. No changes have occurred unless specified. Time Spent With Patient Time: Total time managing care of this patient today ____ minutes.
[2023-08-27] MEDS: LORazepam 1 MG TABLET PO (19:43)
[2023-08-27] MEDS: Acetaminophen 325 MG TABLET 975 MG PO (20:17)
== END 2023-08-27 20:25 | disposition home or self-care (01) | DRG 661 ==
LOC: HO.ED 16:20 → HO.EDOVER 17:57 → HO.IMC 19:29 → HO.S3 08-27 13:51
PROVIDERS: Physician Assistant; Physician Assistant Medical; Admitting Provider Urology; Emergency Provider Internal Medicine; Visit Provider Urology
PROC: 0T768DZ Dilation of Right Ureter with Intraluminal Device, Via Natural or Artificial Opening Endoscopic (ICD-10-PCS; CPT 52332; principal; 2023-08-27 13:10)
DX: N13.2 Hydronephrosis with renal and ureteral calculous obstruction (principal); Z79.899 Other long term (current) drug therapy
CPT/HCPCS: 52332; 36415; 74160; 74176; 80048; 80076; 81001; 81025; 83605; 83690; 85025; 87040; 87086; 87186; 99285; C1758; C1769; C2617; J0696; J1100; J1200; J1885; J1956; J2250; J2270; J2405; J2704; J2765; J3010; Q9967

== ENCOUNTER → 2023-08-26 17:50 | Outpatient (BNV) | payer MEDICARE, SELFPAY | PROVIDERS: Admitting Provider Urology; Emergency Provider Internal Medicine; Visit Provider Urology | DX: N20.0 Calculus of kidney (principal); R10.9 Unspecified abdominal pain; R11.2 Nausea with vomiting, unspecified | CPT/HCPCS: 52332; 74420; 99238; 99285 ==

== ENCOUNTER 2023-09-10 06:08 | Day surgery (SDC) | payer MEDICARE, SELFPAY ==
--- NOTE | ~2023-09-10 | XR_ITS ---
EXAMINATION: XR ABDOMEN KUB CLINICAL INDICATION: Right kidney stone. COMPARISON: CT scan dated August 27, 2023. TECHNIQUE: AP view of the abdomen. XR/XR KUB FINDINGS/IMPRESSION: Overlying bowel contents limit evaluation for subtle urinary tract stones. Approximately 0.4 cm or less, ovoid and rounded densities project over the renal shadows, bilaterally, suggesting renal collecting system stones, right more than left. The proximal loop of a right double-J ureteral stent projects over the expected location of the right renal pelvis, and the distal loop projects over the expected location of the urinary bladder. No stone is identified along the course of the stent. There is no evidence of intestinal obstruction or free air. No soft tissue mass or organomegaly is noted. The bones appear unremarkable. IUD.
[2023-09-10 06:23] LABS: UPreg QC Valid YES; Urine Pregnancy NEGATIVE (NEGATIVE)
[2023-09-10] MEDS: Lactated Ringers 1,000 ML 50 ML IVCONT (07:10)
[2023-09-10 07:11] VITALS: BMI 29.7
[2023-09-10 07:26] VITALS: BP 151/83; PULSE 82; RESP 16; TEMP 36.9; O2SAT 98
--- NOTE | 2023-09-10 07:29 | P.CONAN_ITS ---
[facility] Active Problems Active Problems: All Active Problems (Updated 09/10/23 @ 07:07 by Jud Trinh RN) Liver mass (Acute) Malpositioned IUD (Acute) Past Medical History Medical History GERD (gastroesophageal reflux disease) Anemia Delivery with history of section Functional capacity: independent ambulation Family History Family history of problems with anesthesia: No Surgical History Surgical History History of ankle surgery Hx of cystoscopy History of Problems with Anesthesia: No Social History Social History Household Members: None Housing: Apartment Do you presently have visiting nurse or other home services: No Patient Tobacco Use Status: Never used Tobacco Use of substances other than those prescribed or required for medical reasons: No Are you DNR?: No Advance Directives: No Advance Directives Information Provided: Yes service: No Meds Allergies Allergy/AdvReac Type Severity Reaction Status Date / Time No Known Allergies Allergy Verified 09/10/23 07:09 Active Medications: Current Medications Lactated Ringer's (Lr) 1,000 mls @ 50 mls/hr IVCONT .Q20H [facility] Exam Height,Weight and Vital Signs: Height 5 ft 5 in Weight 81.012 kg Last Vital Signs Temp 98.5 F 09/10/23 07:26 Pulse 82 09/10/23 07:26 Resp 16 09/10/23 07:26 BP 151/83 H 09/10/23 07:26 Pulse Ox 98 09/10/23 07:26 O2 Del Method Room Air 09/10/23 07:26 Pertinent Lab Results Pertinent Lab Results: Laboratory Tests 09/10/23 06:15 Urine Test NEGATIVE Airway Mallampati Class: II TM Dist: >3cm Neck ROM: Full Heart: RRR Lungs: CTA Assessment and Plan Assessment Anesthesia Assessment: Anesthesia Plan Discussed Final Anesthetic Review Family History of Problems with Anesthesia: No History of Problems with Anesthesia: No ASA Class: II Final Preanesthetic Review: Meds/Allgs Chart Reviewed, Consent Obtained/Reviewed and Anes Risks/Benef Reviewed Patient Risk: Low Procedure Risk: Low Anesthetic Plan Anesthetic Plan: MAC: Disposition: Standard PACU
[2023-09-10] MEDS: levoFLOXacin 500 MG TABLET PO (08:38)
--- NOTE | 2023-09-10 08:44 | P.HPSUR_ITS ---
Pre-Procedural Eval Section A Date of Service: 09/10/23 The patient is an INPATIENT: No Changes since office visit: No Cold of Flu in the past 2 weeks, No New Medical Problems, No Changes in Medication and No Patient answered all questions The History & Physical has been completed within 30 days and I have reviewed it.: Yes Section B Chief Complaint: Calculus of kidney Details of Present Illness: right kidney with stent Relevant Social History: None Present Medications: None Medical History: No relevant PMH Allergies: Allergies Allergy/AdvReac Type Severity Reaction Status Date / Time No Known Allergies Allergy Verified 09/10/23 07:09 Review of Systems Sugical H&P ROS: Negative: Constitution, Cardiovascular, Respiratory, Neurological, Psychiatric, Hem-Onc, Allergic/Immunologic, Gastrointestinal, Chandrika tourinary, Musculoskeletal, Integumentary, Endocrine and Eyes/Ears/Nose/Throat Exam Surgical H&P Exam: Normal: HEENT, Normal: Heart, Normal: Lungs, Normal: Extremities, Normal: Abdomen, Normal: Skin and Normal: Neurological Plan Diagnosis/Plan: Unchanged (right ESWL wiyth cysto stent removal) I have reviewed the history and physical and performed a pertinent physical examination on my patient. No changes have occurred unless specified. Time Spent With Patient Time: Total time managing care of this patient today ____ minutes.
--- NOTE | 2023-09-10 09:03 | W.PM.OPN ---
Operative Note Operative Note Date of Service: 09/10/23 Narrative: PreOperative Diagnosis: right Renal stones with indwelling stent Post Operative Diagnosis: right Renal stones Procedure: right ESWL, cystoscopy stent removal Surgeon: Dr Anuj Renteria Anesthesia: mac/sedation Indications for procedure: The patient understands ESWL may be a staged procedure and subsequent intervention may be required based on imaging after ESWL. Quoted stone clearance rates for a solitary procedure are in the 70-80% range based primarily on stone location. They also understand there is a risk of bleeding to the kidney, infection, damage to adjacent organs, and stone migration following the procedure. - Imaging right mid pole 5mm on US Procedure: After informed consent was verified the patient was brought to the operating room and placed in a supine position. Anesthesia was performed per protocol. Safety pause time-out was performed. Imaging was displayed in the room and laterality confirmed. ESWL was performed. The 1st 500 shocks were performed at 60 hertz. These were performed with increasing power. Once maximum power was reached the rate was increased to 180 hertz. A total of 2500 shocks were given. Targeted imaging with ultrasound/fluoroscopy showed stone smudging suggestive of disintegration. At procedure completion cystoscopy performed and right stent removed without difficulty The patient tolerated the procedure well and was transferred to the recovery area upon completion. Post procedure imaging will be organized. There was no evidence for flank discoloration.
[2023-09-10 09:20] VITALS: BP 117/73; PULSE 87; RESP 16; TEMP 36.5; O2SAT 95
[2023-09-10 09:25] VITALS: BP 113/70; PULSE 84; RESP 14; O2SAT 97
[2023-09-10 09:30] VITALS: BP 130/79; PULSE 76; RESP 16; O2SAT 99
[2023-09-10 09:35] VITALS: BP 132/87; PULSE 74; RESP 16; O2SAT 99
[2023-09-10 09:50] VITALS: BP 134/85; PULSE 80; RESP 16; TEMP 36.4; O2SAT 99
[2023-09-10] MEDS: Phenazopyridine HCL 100 MG TABLET PO (09:50)
== END 2023-09-10 10:30 | disposition home or self-care (01) ==
PROVIDERS: Nurse Practitioner; Visit Provider Urology
PROC: (CPT 50590; principal; 2023-09-10 08:20)
DX: N13.2 Hydronephrosis with renal and ureteral calculous obstruction (principal); R16.0 Hepatomegaly, not elsewhere classified; D64.9 Anemia, unspecified; K21.9 Gastro-esophageal reflux disease without esophagitis; Z96.0 Presence of urogenital implants; Z79.899 Other long term (current) drug therapy
CPT/HCPCS: 50590; 52310; 74018; 81025; J0131; J1885; J2704

== ENCOUNTER → 2023-09-10 06:08 | Outpatient (BNV) | payer SELFPAY | PROVIDERS: Visit Provider Urology | DX: N20.0 Calculus of kidney (principal); Z96.0 Presence of urogenital implants | CPT/HCPCS: 50590; 52310 ==